=== PATIENT | male | born 1985 | race Caucasian/White ===

== ENCOUNTER 2021-07-06 11:53 | Emergency (ER) | payer OTHER ==
[~2021-07-06] VITALS: Ht 182.9 cm; Wt 109.1 kg
[~2021-07-06 11:53] MED LIST: FLEXERIL10 MG PO; NO HOME MEDICATIONS; NORCO 325 MG-7.1 TAB PO
[2021-07-06 12:02] VITALS: TEMP 98.4
[2021-07-06] MEDS ORDERED: FLEXERIL 1010 MG/TAB PO (12:47)
[2021-07-06 13:03] VITALS: BP 142/78; PULSE 86
== END 2021-07-06 13:08 | disposition home or self-care (01) ==
LOC: COL.ER 11:53
DX: G89.29 Other chronic pain (principal); M54.50 Low back pain, unspecified
CPT/HCPCS: J1885; J2360

== ENCOUNTER → 2022-06-20 | Outpatient (CLI) | payer OTHER ==
[~2022-06-20] MED LIST changes: +FLEXERIL 1010 MG/TAB PO
== END ==
LOC: MHCPAIN 14:38
DX: M54.16 Radiculopathy, lumbar region (principal); M53.3 Sacrococcygeal disorders, not elsewhere classified; M79.2 Neuralgia and neuritis, unspecified; M54.2 Cervicalgia; M62.81 Muscle weakness (generalized); M25.551 Pain in right hip; M25.552 Pain in left hip; Z98.1 Arthrodesis status
CPT/HCPCS: G0463

== ENCOUNTER → 2022-06-28 | Outpatient (CLI) | payer OTHER | LOC: MHCPAIN 12:04 | DX: M54.18 Radiculopathy, sacral and sacrococcygeal region (principal); M54.50 Low back pain, unspecified; M53.3 Sacrococcygeal disorders, not elsewhere classified | CPT/HCPCS: J1100; Q9967 ==

== ENCOUNTER → 2022-07-20 | Outpatient (CLI) | payer OTHER | LOC: MHCPAIN 16:02 | DX: M54.16 Radiculopathy, lumbar region (principal); Z98.1 Arthrodesis status; M53.3 Sacrococcygeal disorders, not elsewhere classified; M54.2 Cervicalgia; M50.30 Other cervical disc degeneration, unspecified cervical region | CPT/HCPCS: G0463 ==